=== PATIENT | male | born 1965 | race Caucasian/White ===

== ENCOUNTER 2021-10-04 15:38 | Inpatient (IN) | payer OTHER, SELFPAY ==
[2021-10-04 15:49] VITALS: BP 159/98; PULSE 93; RESP 16; TEMP 36.6; O2SAT 96; BMI 31.5
--- NOTE | 2021-10-04 16:29 | ED_ITS ---
HPI - General Adult General: Chief complaint: Psychiatric Symptoms Stated complaint: mental health evaluation Time Seen by Provider: 10/04/21 16:15 History of Present Illness: HPI: [56]yo patient w/ hx of depression and psychosis presenting for worsening psychosis, SI and hearing voices. He tells me that the voices are telling me to kill myself. . Patient tells me that he would like to be started on medicine. On further questioning, patient declined to elaborate on what the voices are telling him specifically. On arrival, the patient is AAOx3 and cooperative with my evaluation. No focal complaints of chest pain, shortness of breath, palpitations, N/V, focal GI/ complaints. Currently denies HI Onset: acute Duration: ongoing Location: home Severity: severe Associated symptoms: Deny chest pain, dyspnea, nausea, rash, palpitations or vomiting Review of Systems Const: Denies: fever(s) or chills Eyes: Denies: change in vision ENMT: Denies: mouth pain Card: Denies: chest pain or palpitations Resp: Denies: dyspnea or non-productive cough GI: Denies: abdominal pain, nausea, vomiting or diarrhea : Denies: dysuria Musc: Denies: extremity pain Skin/Breast: Denies: rash or new lesions Neuro: Denies: weakness in extremities Psych: Reports: anxiety and other (+auditory hallucination) Nick/Lymph: Denies: easy bruising [facility] ED PFSH: Medical History (Updated 10/04/21 @ 16:47 by Dariel Sesay MD) Psychiatric care Psychosis Physical Exam Const: COMMON NORMALS: alert HENMT: COMMON NORMALS: atraumatic HEAD & SCALP: atraumatic MOUTH: moist mucous membranes not abnormal Eye: COMMON NORMALS: EOMs intact bilaterally and conjunctivae normal CONJUNCTIVA: Yes conjunctivae normal Neck/C-Spine: COMMON NORMALS: full ROM and supple Resp: COMMON NORMALS: normal respiratory effort and clear to auscultation bilaterally AUSCULTATION: clear to auscultation bilaterally Cardio: COMMON NORMALS: regular rate RATE: regular rate GI: COMMON NORMALS: Soft to palpation and non-tender PALPATION: Yes Soft to palpation Extremity: COMMON NORMALS: full ROM Neuro: SENSORIUM/ORIENTATION: Yes alert MOTOR EXAM: No Abnormal motor strength present and Other motor observations present (no focal motor deficits) Psych: COMMON NORMALS: speech normal SPEECH: Yes normal speech MOOD & AFFECT: Yes depressed mood Course Vital Signs: Vital signs: Vital Signs Temperature 98.1 F 10/04/21 20:38 Pulse Rate 96 10/04/21 20:38 Respiratory Rate 18 10/04/21 20:38 Blood Pressure 162/91 10/04/21 20:38 Pulse Oximetry 96 10/04/21 20:38 MDM - General Adult Medical Decision Making [56]yo patient w/ hx of depression and psychosis presenting for acute auditory hallucination, psychosis and SI. HDS, exam within normal limit. Clinically the patient displays no overt toxidrome; they are well appearing, with low suspicion for toxic ingestion given history and exam. Symptoms unlikely 2/2 anemia, hypothyroidism, infection, or ICH. Workup: CBC, CMP, Lipase, salicylate/tylenol, UDS Lab findings: +marijuana in the urine [6:00pm] On reassessment, labs and workup wnl. Patient is hemodynamically stable with no acute medical complaints. Case discussed with psychiatric provider Dr. Urena at [facility] psych inpatient with recommendation for admission Disposition: Psych Lab Data : 10/04/21 16:55 10/04/21 16:55 Laboratory Results WBC 18.7 10^3/uL (4.0-10.0) H 10/04/21 16:55 RBC 6.21 10^6/uL (4.1-5.3) H 10/04/21 16:55 Hgb 19.7 g/dL (11.7-16.6) H 10/04/21 16:55 Hct 58.1 % (42.0-52.0) H 10/04/21 16:55 MCV 93.6 fl (80-94) 10/04/21 16:55 MCH 31.7 pg (28.0-34.0) 10/04/21 16:55 MCHC 33.9 g/dL (30.0-36.0) 10/04/21 16:55 RDW 13.6 % (12.1-15.1) 10/04/21 16:55 Plt Count 278 10^3/cmm (130-400) 10/04/21 16:55 MPV 10.2 fL (7.4-10.4) 10/04/21 16:55 Neut % (Auto) 80.4 % 10/04/21 16:55 Lymph % (Auto) 12.2 % 10/04/21 16:55 [place] % (Auto) 6.1 % 10/04/21 16:55 Eos % (Auto) 0.3 % 10/04/21 16:55 Baso % (Auto) 0.5 % 10/04/21 16:55 Neut # (Auto) 15.00 10^3/uL (1.8-7.7) H 10/04/21 16:55 Lymph # (Auto) 2.3 10^3/uL (0.8-4.8) 10/04/21 16:55 [place] # (Auto) 1.1 10^3/uL (0.2-0.9) H 10/04/21 16:55 Eos # (Auto) 0.1 10^3/uL (0.0-0.8) 10/04/21 16:55 Baso # (Auto) 0.1 10^3/uL (0.0-0.1) 10/04/21 16:55 Nucleated RBC % (auto) 0 % 10/04/21 16:55 Nucleated RBCs # 0.0 /100WBC 10/04/21 16:55 Sodium 134 mmol/L (136-145) L 10/04/21 16:55 Potassium 3.8 mmol/L (3.5-5.1) 10/04/21 16:55 Chloride 99 mmol/L (98-107) 10/04/21 16:55 Carbon Dioxide 24 mmol/L (22-29) 10/04/21 16:55 Anion Gap 14.8 (5-19) 10/04/21 16:55 BUN 15 mg/dL (6-20) 10/04/21 16:55 Creatinine 0.9 mg/dL (0.7-1.2) 10/04/21 16:55 GFR Calculation 86.7 mL/min (90-130) L 10/04/21 16:55 Glucose 102 mg/dL (65-115) 10/04/21 16:55 Calculated Osmolality 279 mOsm/kg (285-295) L 10/04/21 16:55 Calcium 10.1 mg/dL (8.5-10.5) 10/04/21 16:55 Total Bilirubin 0.6 mg/dL (0.15-1.2) 10/04/21 16:55 AST 25 U/L (0-40) 10/04/21 16:55 ALT 29 U/L (0-41) 10/04/21 16:55 Alkaline Phosphatase 99 IU/L (40-130) 10/04/21 16:55 Total Protein 7.2 g/dL (6.6-8.7) 10/04/21 16:55 Albumin 4.5 g/dL (3.5-5.2) 10/04/21 16:55 Globulin 2.7 g/dL (1.3-4.6) 10/04/21 16:55 Lipase 30 U/L (13-60) 10/04/21 16:55 Salicylates < 0.3 mg/dL (3-10) L 10/04/21 16:55 Urine Opiates Screen Negative ng/mL (Negative) 10/04/21 16:46 Acetaminophen < 5.0 ug/mL (10-30) L 10/04/21 16:55 Ur Barbiturates Screen Negative ng/mL (Negative) 10/04/21 16:46 Ur Phencyclidine Scrn Negative ng/mL (Negative) 10/04/21 16:46 Ur Amphetamines Screen Negative ng/mL (Negative) 10/04/21 16:46 U Benzodiazepines Scrn Negative ng/mL (Negative) 10/04/21 16:46 Urine Cocaine Screen Negative ng/mL (Negative) 10/04/21 16:46 U Marijuana (THC) Screen Positive ng/mL (Negative) H 10/04/21 16:46 Discharge Plan Discharge Patient Disposition: Admitted As Inpatient Admit Provider: Velasquez Urena Clinical Impression: Depression, Psychosis, Depression with suicidal ideation, Auditory hallucination Condition: Stable Coding Level of Care Code ED [employer] Manager for Germaine Fwcris Exam Comprehensive
--- NOTE | 2021-10-04 16:46 | PC.PHAR ---
PT STATES HE IS TAKING ATORVASTATIN AT THIS TIME- [facility] LAST FILLED IN DECEMBER 2020 EXTERNAL MED HISTORY SHOWS LAST FILLED 04/16/21 FOR 90 DAYS.
[2021-10-04 17:05] LABS: Basophils # 0.1 10^3/uL (0.0-0.1); Basophils % 0.5 %; Eosinophils # 0.1 10^3/uL (0.0-0.8); Eosinophils % 0.3 %; Hematocrit 58.1 % (42.0-52.0); Hemoglobin 19.7 g/dL (11.7-16.6); Lymphocytes # 2.3 10^3/uL (0.8-4.8); Lymphocytes % 12.2 %; Mean Corpuscular HGB Conc 33.9 g/dL (30.0-36.0); Mean Corpuscular Hemoglobin 31.7 pg (28.0-34.0); Mean Corpuscular Volume 93.6 fl (80-94); Mean Platelet Volume 10.2 fL (7.4-10.4); Monocytes # 1.1 10^3/uL (0.2-0.9); Monocytes % 6.1 %; Neutrophils % 80.4 %; Nucleated Red Blood Cells % 0 %; Platelet Count 278 10^3/cmm (130-400); Red Blood Count 6.21 10^6/uL (4.1-5.3); Red Cell Distribution Width 13.6 % (12.1-15.1); White Blood Count 18.7 10^3/uL (4.0-10.0)
[2021-10-04 17:23] LABS: Alanine Aminotransferase 29 U/L (0-41); Albumin Level 4.5 g/dL (3.5-5.2); Alkaline Phosphatase 99 IU/L (40-130); Anion Gap 14.8 (5-19); Aspartate Amino Transferase 25 U/L (0-40); Blood Urea Nitrogen 15 mg/dL (6-20); Calcium 10.1 mg/dL (8.5-10.5); Carbon Dioxide 24 mmol/L (22-29); Chloride 99 mmol/L (98-107); Globulin 2.7 g/dL (1.3-4.6); Glomerular Filtration Rate 86.7 mL/min (90-130); Glucose 102 mg/dL (65-115); Lipase 30 U/L (13-60); Osmolality Calculated 279 mOsm/kg (285-295); Potassium 3.8 mmol/L (3.5-5.1); Sodium 134 mmol/L (136-145); Total Bilirubin 0.6 mg/dL (0.15-1.2); Total Protein 7.2 g/dL (6.6-8.7)
[2021-10-04 17:24] LABS: Acetaminophen < 5.0 ug/mL (10-30); Salicylate < 0.3 mg/dL (3-10)
[2021-10-04] MEDS: LORazepam 2 mg Tablet PO (17:30)
[2021-10-04 18:47] VITALS: BP 162/91; PULSE 96; RESP 18; TEMP 36.7; O2SAT 95
[2021-10-04 19:04] LABS: Amphetamines Screen Urine Negative (Negative); Barbiturates Screen Urine Negative (Negative); Benzodiazepines Screen Urine Negative (Negative); Cocaine Screen Urine Negative (Negative); Opiate Screen Urine Negative (Negative); PCP Screen Urine Negative (Negative); THC Screen Urine Positive (Negative)
[2021-10-04] MEDS: zolpidem 5 mg Tablet 10 MG PO (20:11)
[2021-10-04] MEDS: OLANZapine 5 mg ODT PO (20:11)
[2021-10-04] MEDS: escitalopram 10 mg Tablet 20 MG PO (20:25)
[2021-10-04] MEDS: hydroCHLOROthiazide 25 mg Tablet 12.5 MG PO (20:25)
[2021-10-04] MEDS: lisinopril 10 mg Tablet PO (20:26)
[2021-10-04 20:38] VITALS: BP 162/91; PULSE 96; RESP 18; TEMP 36.7; O2SAT 96
[2021-10-04] MEDS: hyDROXYzine 25 mg Capsule 50 MG PO (21:37)
[2021-10-05 06:00] VITALS: BP 156/88; PULSE 91; RESP 18; TEMP 36.7; O2SAT 96
[2021-10-05] MEDS: pantoprazole DR 40 mg Tablet PO (09:19)
[2021-10-05] MEDS: atorvastatin 40 mg Tablet PO (09:19)
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
[2021-10-05] MEDS: ARIPiprazole 10 mg Tablet PO (10:21)
[2021-10-05] MEDS: LORazepam 2 mg/mL INJ 1 mL IM ×2 (10:40→11:57)
[2021-10-05] MEDS: haloperidol inj 5 mg/mL INJ 1 mL IM (11:51)
[2021-10-05] MEDS: diphenhydrAMINE 50 mg/mL SDV 1mL IM (11:52)
--- NOTE | 2021-10-05 12:59 | XR_ITS ---
WS: [id number] Exam: XR chest 1V portable [id number] Date/Time of Exam: 10/05/2021 1:05 PM Reason For Exam: leukocytosis No previous exams. There is infiltrate in the left lower lobe that may represent active pneumonia or chronic change. Rem aining lung mahoney are generally clear. There is coarsening of interstitial markings. Heart size is n ormal. There may be some widening of the superior mediastinum. Regional bony elements are intact. Recommendations: A detailed PA and lateral chest radiograph is recommended for more detailed evaluati on. XR/XR chest 1V portable [id number] IMPRESSION: 1. Infiltrate in the left lower lobe that may represent active pneumonia or chr onic change. 2. There may be widening of the superior mediastinum.
[2021-10-05 14:00] VITALS: BP 127/81; PULSE 109; RESP 18; TEMP 36.4; O2SAT 95
[2021-10-05 17:10] LABS: Basophils # 0.1 10^3/uL (0.0-0.1); Basophils % 0.4 %; Eosinophils # 0.3 10^3/uL (0.0-0.8); Eosinophils % 1.8 %; Hematocrit 63.3 % (42.0-52.0); Hemoglobin 20.9 g/dL (11.7-16.6); Lymphocytes # 3.1 10^3/uL (0.8-4.8); Mean Corpuscular Hemoglobin 31.6 pg (28.0-34.0); Mean Corpuscular Volume 95.8 fl (80-94); Mean Platelet Volume 9.9 fL (7.4-10.4); Monocytes # 1.5 10^3/uL (0.2-0.9); Neutrophils # 13.96 10^3/uL (1.8-7.7); Neutrophils % 73.2 %; Nucleated Red Blood Cells % 0 %; Platelet Count 282 10^3/cmm (130-400); Red Blood Count 6.61 10^6/uL (4.1-5.3); White Blood Count 19.1 10^3/uL (4.0-10.0)
[2021-10-05 19:21] LABS: Alanine Aminotransferase 30 U/L (0-41); Albumin Level 4.1 g/dL (3.5-5.2); Alkaline Phosphatase 89 IU/L (40-130); Aspartate Amino Transferase 44 U/L (0-40); Blood Urea Nitrogen 24 mg/dL (6-20); Calcium 9.8 mg/dL (8.5-10.5); Carbon Dioxide 26 mmol/L (22-29); Chloride 102 mmol/L (98-107); Globulin 2.4 g/dL (1.3-4.6); Glomerular Filtration Rate 62.2 mL/min (90-130); Glucose 91 mg/dL (65-115); Osmolality Calculated 292 mOsm/kg (285-295); Sodium 139 mmol/L (136-145); Total Bilirubin 0.4 mg/dL (0.15-1.2); Total Protein 6.5 g/dL (6.6-8.7)
[2021-10-05] MEDS: escitalopram 10 mg Tablet 20 MG PO (21:43)
[2021-10-05] MEDS: lisinopril 10 mg Tablet PO (21:44)
[2021-10-05] MEDS: hydroCHLOROthiazide 25 mg Tablet 12.5 MG PO (21:44)
[2021-10-05 22:00] VITALS: BP 165/88; PULSE 87; RESP 16; TEMP 37; O2SAT 96
[2021-10-06 06:00] VITALS: BP 129/79; PULSE 84; RESP 18; TEMP 36.6; O2SAT 94
[2021-10-06 08:53] VITALS: BP 135/85; PULSE 125; RESP 19; TEMP 36.6; O2SAT 94
[2021-10-06] MEDS: pantoprazole DR 40 mg Tablet PO (09:16)
[2021-10-06] MEDS: atorvastatin 40 mg Tablet PO (09:16)
[2021-10-06 10:40] LABS: Add Urine Microscopic? NO; Charge for UA Resulting for Rev
[2021-10-06 10:45] LABS: Bilirubin Urine Neg (Negative); Blood Urine Neg (Negative); Glucose Urine UA Norm (Normal); Ketones Urine Negative (Negative); Leukocyte Esterase Urine Negative (Negative); Nitrate Urine Negative (Negative); Protein Urine Neg (Negative); Urine Appearance Clear (CLEAR); Urine Color Straw (Yellow); Urobilinogen Urine Norm (Negative); pH Urine 7 (5-7)
--- NOTE | 2021-10-06 11:51 | NPU.GN ---
[facility] Group Topic:Daniela Farrell General Mood of Group: Patient did attend group today. He was social and respectful. Patient met with CSS and discussed [facility] services and was aided in completing the paperwork for [facility] services.
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
[2021-10-06] MEDS: acetaminophen 325 mg Tablet 650 MG PO ×2 (12:25→21:29)
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
[2021-10-06 14:00] VITALS: BP 136/74; PULSE 95; RESP 18; TEMP 36.5; O2SAT 98
--- NOTE | 2021-10-06 15:25 | PC.NURSE ---
Patient was given PRN medications yesterday per MD for extreme agitation. He was yelling, crying, and waving his hands around erratically.
[2021-10-06 19:30] VITALS: BP 157/94; PULSE 130; RESP 17; O2SAT 95
[2021-10-06] MEDS: trazodone 50 mg Tablet PO (21:30)
[2021-10-06] MEDS: zolpidem 5 mg Tablet 10 MG PO (21:31)
[2021-10-06] MEDS: lisinopril 10 mg Tablet PO (21:31)
[2021-10-06] MEDS: hydroCHLOROthiazide 25 mg Tablet 12.5 MG PO (21:31)
[2021-10-06] MEDS: hyDROXYzine 25 mg Capsule 50 MG PO (21:31)
[2021-10-06] MEDS: escitalopram 10 mg Tablet 20 MG PO (21:32)
[2021-10-07 05:03] VITALS: BP 101/63; PULSE 82; RESP 17; TEMP 36.4; O2SAT 94
[2021-10-07] MEDS: pantoprazole DR 40 mg Tablet PO (08:51)
[2021-10-07] MEDS: atorvastatin 40 mg Tablet PO (08:51)
[2021-10-07] MEDS: OLANZapine 5 mg ODT PO (09:11)
[2021-10-07] MEDS: hyDROXYzine 25 mg Capsule 50 MG PO (10:17)
[2021-10-07] MEDS: ARIPiprazole 10 mg Tablet PO (10:37)
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
[2021-10-07 10:42] VITALS: BP 101/63; PULSE 82; RESP 17; TEMP 36.4; O2SAT 94
== END 2021-10-07 10:52 | disposition home or self-care (01) | DRG 885 ==
LOC: ER 16:47 → NP 22:06
PROVIDERS: Admitting Provider Psychiatry & Neurology Psychiatry; Emergency Provider Emergency Medicine; PCP Family Medicine; Visit Provider Psychiatry & Neurology Psychiatry
DX: F29 Unspecified psychosis not due to a substance or known physiological condition (principal); R45.851 Suicidal ideations; F32.A Depression, unspecified
CPT/HCPCS: 36415; 71045; 80053; 80306; 80307; 81003; 83690; 85025; 90471; 90686; 96372; 97150; 97165; 99285; J1200; J1630; J2060

== ENCOUNTER → 2022-01-03 13:22 | Outpatient (BNVA) | payer OTHER, SELFPAY | PROVIDERS: PCP Family Medicine; Visit Provider Podiatrist Foot & Ankle Surgery | DX: M19.072 Primary osteoarthritis, left ankle and foot (principal); M79.672 Pain in left foot | CPT/HCPCS: 73630 ==

== ENCOUNTER → 2022-11-09 15:09 | Outpatient (BNVA) | payer OTHER, SELFPAY | PROVIDERS: PCP Family Medicine; Visit Provider Psychiatry & Neurology Psychiatry | DX: Z79.899 Other long term (current) drug therapy (principal) | CPT/HCPCS: 80053; 80061; 83036; 84443; 85025 ==

== ENCOUNTER → 2024-05-23 11:34 | Outpatient (BNVA) | payer OTHER, SELFPAY | PROVIDERS: PCP Family Medicine; Visit Provider Psychiatry & Neurology Psychiatry | DX: Z79.899 Other long term (current) drug therapy (principal) | CPT/HCPCS: 80053; 80061; 83036; 84443; 85025 ==

== ENCOUNTER → 2025-06-19 09:24 | Outpatient (BNVA) | payer OTHER, SELFPAY | PROVIDERS: PCP Family Medicine; Visit Provider Psychiatry & Neurology Psychiatry | DX: Z79.899 Other long term (current) drug therapy (principal) | CPT/HCPCS: 80053; 80061; 83036; 84443; 85025 ==